=== PATIENT | female | born 1975 | race African-American/Black ===

== ENCOUNTER 2017-01-20 18:02 | Emergency (ER) | payer SELFPAY ==
[~2017-01-20] VITALS: Ht 170.2 cm; Wt 66.0 kg
[2017-01-20] MEDS ORDERED: BACITRACIN ZINC OINT UDPKT TOP ONE (22:00)
[2017-01-20] MEDS ORDERED: TETANUS, DIPHTHERIA, PERTUSSIS VAC/PF 0.5ML (>7YR OLD) IM ONE (22:00)
[2017-01-20 22:37] LABS: CLARITY URINE CLOUDY (CLEAR); COLOR URINE YELLOW (YELLOW); GLUCOSE URINE NEGATIVE (NEGATIVE); KETONES URINE TRACE (NEGATIVE); LEUKOCYTE ESTERASE URINE NEGATIVE (NEGATIVE); NITRITE URINE NEGATIVE (NEGATIVE); OCCULT BLOOD URINE NEGATIVE (NEGATIVE); PROTEIN URINE NEGATIVE (NEGATIVE); SPECIFIC GRAVITY URINE 1.035 (1.005-1.030)
[2017-01-21] VITALS: BP 126/75
== END 2017-01-21 | disposition home or self-care (01) ==
LOC: ER 20:58
DX: R10.9 Unspecified abdominal pain (principal); S61.551A Open bite of right wrist, initial encounter; R30.0 Dysuria; Z88.0 Allergy status to penicillin; W54.0XXA Bitten by dog, initial encounter; Y93.89 Activity, other specified; Y92.89 Other specified places as the place of occurrence of the external cause
CPT/HCPCS: 81001; 81025; 90471; 90715; 99283; Z7610